=== PATIENT | female | born 1965 | race Caucasian/White ===

== ENCOUNTER → 2016-12-28 | Day surgery (SDC) | payer OTHER ==
[2016-12-27 14:54] VITALS: Ht 157.5 cm; Wt 88.6 kg
[~2016-12-28] VITALS: Ht 157.5 cm; Wt 88.6 kg
[~2016-12-28] MED LIST: DICL-201 PO; DLCSR120 PO; LIDOCAINE HCL 2% 2 ML VIAL (20MG/ML) ONE; METO50TA7 PO; MIDAZOLAM HCL 1 MG/ML 2ML VIAL ONE; MTR800 PO; ONDA4TAB46 PO; ONDANSETRON INJ 2 MG/ML 2 ML VIAL ONE; PANT40TA PO; PROPOFOL IV EMULSION 10 MG/ML 20 ML VIAL IV ONE; SERT100T PO; SODIUM CHLORIDE 0.9% 500ML 500 ML IV ONE
--- NOTE | 2016-12-28 14:06 | Endo History and Physical ---
History & Physical Date of Service: Dec 28, 2016. Chief Complaint: reflux, nausea, wt loss Referring Physician: Rachel FLYNN History of Present Illness 51 yo CF who presents for EGD and colonoscopy secondary to GERD, nausea and weight loss. Past Medical History Arthritis, Anxiety, Reflux, High Cholesterol, Kidney Disease, Depression Past Surgical History Hx Cardiac Surgery: No Hx Internal Defibrillator: No Hx Pacemaker: No Hx Abdominal Surgery: Yes (LAP JESUS) Hx of Implantable Prosthesis: No Hx Post-Op Nausea and Vomiting: No Hx Cancer Surgery: No Hx Thoracic Surgery: No Hx Orthopedic: Yes (RT KNEE ARTHROSCOPY) Family History Colon CA, Polyp Social History Smoking Status: Former Smoker Hx Substance Use: No Hx Alcohol Use: No Allergies Coded Allergies: Cephalosporins (Verified Allergy, Unknown, INCREASED HEART RATE, 12/27/16) Hydrocodone (Verified Allergy, Unknown, INCREASED HEART RATE, 12/27/16) Imipramine (Verified Allergy, Unknown, RASH, 12/27/16) Current Medications Reported Home Medications Medications Dose Route/Sig Max Daily Dose Days Date Category Dose Instructions Ibuprofen 800 Mg Tab 1 Tab PO DAILY PRN 12/27/16 Reported Zofran (Ondansetron HCl) 4 Mg Tab 4 Mg PO Q8 PRN 12/27/16 Reported Voltaren (Diclofenac Sodium) 75 Mg Tabcr 75 Mg PO BID PRN 12/27/16 Reported WITH FOOD Zoloft (Sertraline Hcl) 100 Mg Tab 150 Mg PO HS 12/27/16 Reported Protonix (Pantoprazole Sodium) 40 Mg Tab 40 Mg PO QAM 02/08/16 Reported Toprol-Xl (Metoprolol Succinate) 50 Mg Tabcr 50 Mg PO HS 12/01/09 Reported Dilacor Xr * (Diltiazem HCl) 120 Mg Ercap 120 Mg PO QAM 12/01/09 Reported Vital Signs Weight (Kilograms): 88.64 Height (Feet): 5 Height (Inches): 2 Date Time Temp Pulse Resp B/P Pulse Ox O2 Delivery O2 Flow Rate FiO2 12/28/16 13:04 37.2 77 20 90/66 99 Room Air Physical Exam General Appearance: WD/WN, no apparent distress Respiratory/Chest: Auscultation: breath sounds normal Cardiovascular: Heart Auscultation: RRR Abdomen: Bowel Sounds: normal Inspection & Palpation: soft, non-distended, no tenderness, guarding & rebound Assessment and Plan Assessment: 51 yo CF who presents for EGD and colonoscopy secondary to GERD, nausea and weight loss. Plan: Proceed with EGD and colonoscopy.
--- NOTE | 2016-12-28 14:16 | GI REPORT ---
Procedure Date: 12/28/2016 2:09 PM Procedure: Upper GI endoscopy Indications: Esophageal reflux, Nausea, Weight loss Medicines: Monitored Anesthesia Care Complications: No immediate complications. Estimated Blood Loss: Estimated blood loss: none. Procedure: Pre-Anesthesia Assessment: - Prior to the procedure, a History and Physical was performed, and patient medications and allergies were reviewed. The patient's tolerance of previous anesthesia was also reviewed. The risks and benefits of the procedure and the sedation options and risks were discussed with the patient. All questions were answered, and informed consent was obtained. Prior Anticoagulants: The patient has taken no previous anticoagulant or antiplatelet agents. ASA Grade Assessment: II - A patient with mild systemic disease. After reviewing the risks and benefits, the patient was deemed in satisfactory condition to undergo the procedure. After obtaining informed consent, the endoscope was passed under direct vision. Throughout the procedure, the patient's blood pressure, pulse, and oxygen saturations were monitored continuously. The scope was introduced through the mouth, and advanced to the second part of duodenum. The upper GI endoscopy was accomplished without difficulty. The patient tolerated the procedure well. Findings: The esophagus was normal. Localized mild inflammation characterized by erythema was found in the gastric antrum. Biopsies were taken with a cold forceps for histology. The examined duodenum was normal. Impression: - Normal esophagus. - Gastritis. Biopsied. - Normal examined duodenum. Recommendation: - Resume previous diet. - Continue present medications. - Await pathology results. - Perform a colonoscopy today. Wilfredo Roe, DO 12/28/2016 2:15:21 PM This report has been signed electronically. Note Initiated On: 12/28/2016 2:09 PM I attest to the content of the Intraoperative Record and orders documented therein, exceptions below
--- NOTE | 2016-12-28 14:55 | Anesthesiology Progress Note ---
Anesthesia Post Op Note Date & Time Dec 28, 2016 at 14:55 Vital Signs Pain Intensity: 0 Vital Signs Past 12 Hours Date Time Temp Pulse Resp B/P Pulse Ox O2 Delivery O2 Flow Rate FiO2 12/28/16 14:53 70 20 115/65 98 Room Air 12/28/16 14:39 74 20 114/68 95 Room Air 12/28/16 13:04 37.2 77 20 90/66 99 Room Air Notes Mental Status: alert / awake / arousable, participated in evaluation Pt Amnestic to Procedure: Yes Nausea / Vomiting: adequately controlled Pain: adequately controlled Airway Patency, RR, SpO2: stable & adequate BP & HR: stable & adequate Hydration State: stable & adequate Anesthetic Complications: no major complications apparent
[2016-12-28 15:10] VITALS: BP 124/88; PULSE 65; O2SAT 100
--- NOTE | 2016-12-28 15:26 | Discharge Instructions ---
Endoscopy Patient Instructions Date / Procedure(s) Performed Dec 28, 2016. Colonoscopy Allergy Information Coded Allergies: Cephalosporins (Verified Allergy, Unknown, INCREASED HEART RATE, 12/27/16) Hydrocodone (Verified Allergy, Unknown, INCREASED HEART RATE, 12/27/16) Imipramine (Verified Allergy, Unknown, RASH, 12/27/16) Discharge Date / Findings Dec 28, 2016. EGD: Gastritis s/p biopsies Colonoscopy: Internal hemorrhoids Medication Instructions OK to resume all medications today as prescribed Reported Home Medications Medications Dose Route/Sig Max Daily Dose Days Date Category Dose Instructions Ibuprofen 800 Mg Tab 1 Tab PO DAILY PRN 12/27/16 Reported Zofran (Ondansetron HCl) 4 Mg Tab 4 Mg PO Q8 PRN 12/27/16 Reported Voltaren (Diclofenac Sodium) 75 Mg Tabcr 75 Mg PO BID PRN 12/27/16 Reported WITH FOOD Zoloft (Sertraline Hcl) 100 Mg Tab 150 Mg PO HS 12/27/16 Reported Protonix (Pantoprazole Sodium) 40 Mg Tab 40 Mg PO QAM 02/08/16 Reported Toprol-Xl (Metoprolol Succinate) 50 Mg Tabcr 50 Mg PO HS 12/01/09 Reported Dilacor Xr * (Diltiazem HCl) 120 Mg Ercap 120 Mg PO QAM 12/01/09 Reported Provider Instructions Activity Restrictions - No exercising or heavy lifting for 24 hours. - Do not drink alcohol the day of the procedure. - Do not drive a car or operate machinery until the day after the procedure. - Do not make any important decisions or sign important papers in 24 hours after the procedure. Following Day: - Return to full activity which may include returning to work/school. Diet Start your diet with liquids and light foods (jello, soup, juice, toast). Then eat your usual diet if not nauseated. Treatment For Common After Affects For mild abdominal pain, bloating, or excessive gas: - Rest - Eat lightly - Lie on right side Follow-Up Information Follow-up with Rachel FLYNN as scheduled Anesthesia Information What You Should Know You have had a procedure that required some medicine to reduce anxiety and discomfort. This treatment is called moderate sedation. After receiving the treatment, you may be sleepy, but you will be able to breathe on your own. The effects of the treatment may last for several hours. Follow these instructions along with Activity/Diet recommendations noted above: * Do NOT do anything where dizziness or clumsiness would be dangerous. * Rest quietly at home today, then you can be up and about tomorrow. * Have a responsible person stay with you the rest of today. * You may have had an I.V. today. If so, you may take the dressing off later today. Recommendations Call your doctor if: * Trouble breathing * Continuous vomiting for more than 24 hours * Temperature above 101 degrees * Severe abdominal pain or bloating * Pain not relieved by pain medicine ordered * There is increased drainage or redness from any incision * A large amount of rectal bleeding greater than 2-3 tablespoons. (If you had a polyp/s removed or have hemorrhoids, a small amount of blood - from the rectum is to be expected.) * You have any unanswered questions or concerns. IN THE EVENT OF A SERIOUS EMERGENCY, GO TO THE NEAREST EMERGENCY ROOM Your discharge instructions were prepared by provider Wilfredo Roe. Patient Instructions Signature Page Fe Michaud Patient (or Guardian) Signature/Date: I have read and understand the instructions given to me by my caregivers. Caregiver/RN/Doctor Signature/Date: The above-named patient and/or guardian has received patient instructions on this date. + Original Patient Signature Page (only) stays with chart. Please make copy for patient.
== END | disposition home or self-care (01) ==
LOC: C.GI 12:33
PROVIDERS: ATTEND Internal Medicine
DX: K21.9 Gastro-esophageal reflux disease without esophagitis (principal); R63.4 Abnormal weight loss; K29.70 Gastritis, unspecified, without bleeding; Z80.0 Family history of malignant neoplasm of digestive organs; M19.90 Unspecified osteoarthritis, unspecified site; F41.9 Anxiety disorder, unspecified; E78.5 Hyperlipidemia, unspecified; F32.9 Major depressive disorder, single episode, unspecified; Z90.49 Acquired absence of other specified parts of digestive tract